=== PATIENT | female | born 1990 | race Caucasian/White ===

== ENCOUNTER 2018-12-24 16:48 | Inpatient (IN) | payer BC ==
[~2018-12-24] VITALS: Ht 167.6 cm; Wt 64.9 kg
[~2018-12-24 16:48] MED LIST: DEXAMETHASONE SOD PHOSPHATE 4 MG INJ IV ONE; GLYCOPYRROLATE 0.2 MG/ML VIAL MC ONE; IV NORMAL SALINE 1000 ML BAG IV ONE; KETOROLAC TROMETHAMINE 30 MG INJ IM ONE; LIDOCAINE-MPF 2% 5 ML VIAL MC ONE; NEOSTIGMINE METHYLSULFATE 10 MG/10 ML VIAL IV ONE; ONDANSETRON 4 MG/2 ML VIAL IV ONE; PROPOFOL 200 MG/20 ML BOTTLE IV ONE; SUCCINYLCHOLINE CHLORIDE 200 MG/10 ML VIAL MC ONE
[2018-12-24] MEDS ORDERED: LEVO100T PO (17:11)
[2018-12-24] MEDS ORDERED: BUDE10.2 INH (17:11)
[2018-12-24] MEDS ORDERED: MONT10TA22 PO (17:11)
[2018-12-24] MEDS ORDERED: ESCI20TA PO (17:11)
[2018-12-24] MEDS ORDERED: MORPHINE SULFATE 2 MG/1 ML DISP.SYRIN IV ONE ×2 (17:30→17:45)
[2018-12-24] MEDS ORDERED: ONDANSETRON 4 MG/2 ML VIAL IV ONE (17:30)
[2018-12-24] MEDS ORDERED: IV NORMAL SALINE 1000 ML BAG IV ONE ×2 (17:30→19:00)
[2018-12-24] MEDS ORDERED: MORPHINE SULFATE 2 MG/1 ML DISP.SYRIN ONE ×2 (17:37→17:48)
[2018-12-24] MEDS ORDERED: ONDANSETRON 4 MG/2 ML VIAL ONE (17:37)
[2018-12-24 17:39] LABS: *BILIRUBIN,URIN NEGATIVE (NEGATIVE); *CLARITY,URINE CLEAR (CLEAR); *COLOR,URINE YELLOW (YELLOW); *KETONES,URINE NEGATIVE (NEGATIVE); *UROBILINOGEN,URINE 0.2 E.U./dl (NORMAL); LEUKOCYTE ESTERASE ,URINE NEGATIVE (NEGATIVE); NITRITE, URINE NEGATIVE (NEGATIVE); UGLUCOSE NEGATIVE (NEGATIVE)
[2018-12-24 17:39] LABS: BASOPHILS % (AUTO) 0.3 % (0.0-2.0); HEMATOCRIT 42.5 % (31.2-41.9); HEMOGLOBIN 13.9 g/dL (10.9-14.3); LYMPHOCYTES # (AUTO) 0.9 K/uL (20.0-40.0); LYMPHOCYTES % (AUTO) 18.7 % (20.5-51.5); MEAN CORPUSCULAR HEMOGLOBIN 29.7 uug (24.7-32.8); MEAN CORPUSCULAR HGB CONC 33 g/dL (32.3-35.6); MEAN CORPUSCULAR VOLUME 91.1 fL (75.5-95.3); MONOCYTES # (AUTO) 0.3 K/uL (2.0-10.0); MONOCYTES % (AUTO) 7.3 % (0.0-11.0); NEUTROPHILS # (AUTO) 3.4 K/uL (1.8-8.9); NEUTROPHILS % (AUTO) 72.7 % (38.5-71.5); PLATELET COUNT (AUTO) 193 K/uL (179-408); RED BLOOD CELL COUNT(AUTO) 4.66 MIL/uL (3.63-4.92); WHITE BLOOD COUNT (AUTO) 4.7 K/uL (3.8-11.8)
[2018-12-24 17:41] LABS: *BLOOD, URINE TRACE (NEGATIVE)
[2018-12-24 17:42] LABS: *URINE HCG, QUAL NEGATIVE (NEGATIVE)
[2018-12-24 17:47] LABS: BACTERIA,URINE NONE SEEN /HPF (NONE SEEN); SQUAMOUS EPITHELIAL CELL,UR MANY /HPF (NONE SEEN); WBC,URINE 0-3 /HPF (0-3)
[2018-12-24 17:51] LABS: ALANINE AMINOTRANSFERASE 18 U/L (14-59); ALKALINE PHOSPHATASE 60 U/L (50-136); ASPARTATE AMINOTRANSFERASE 13 U/L (15-37); BILIRUBIN,DIRECT 0.1 mg/dL (0.0-0.2); BILIRUBIN,TOTAL 0.5 mg/dL (0.2-1.0); CARBON DIOXIDE 28 mmol/L (21-32); CHLORIDE 105 mmol/L (98-107); GLUCOSE 88 mg/dL (74-106); LIPASE 106 U/L (73-393); POTASSIUM 3.9 mmol/L (3.5-5.1); TOTAL PROTEIN, SERUM 7.5 g/dL (6.4-8.2); UREA NITROGEN, BLOOD 14 mg/dL (7-18)
[2018-12-24] MEDS ORDERED: MORPHINE SULFATE 4 MG/1 ML DISP.SYRIN IV ONE (19:00)
[2018-12-24] MEDS ORDERED: MORPHINE SULFATE 4 MG/1 ML DISP.SYRIN ONE (19:01)
[2018-12-24] MEDS ORDERED: CEFTRIAXONE 1 G in IV DEXTROSE 5% 50 ML IV ONE (19:45)
[2018-12-24] MEDS: METRONIDAZOLE 500 MG/NS 100 ML PIGGYBACK IV ONE ×2 (20:05→20:15)
[2018-12-24] MEDS ORDERED: METRONIDAZOLE 500 MG/NS 100ML 100 ML IV ONE (20:07)
[2018-12-24] MEDS ORDERED: CEFTRIAXONE 1 G VIAL ONE (20:07)
[2018-12-24] MEDS ORDERED: HYDROMORPHONE 2 MG/1 ML DISP.SYRIN ONE (20:38)
[2018-12-24] MEDS ORDERED: SEVOFLURANE 250 ML BOTTLE ONE (20:39)
[2018-12-24] MEDS ORDERED: ROCURONIUM BROMIDE 50 MG/5 ML VIAL ONE (20:39)
[2018-12-24] MEDS ORDERED: MIDAZOLAM HCL 2 MG/2 ML VIAL ONE (20:39)
[2018-12-24] MEDS ORDERED: ZOLPIDEM 5 MG TABLET PO PRN (21:15)
[2018-12-24] MEDS ORDERED: ACETAMINOPHEN 325 MG TABLET PO PRN (21:15)
[2018-12-24] MEDS ORDERED: Z GUARD REMEDY PASTE 57 GM TUBE TOP PRN (21:15)
[2018-12-24] MEDS ORDERED: HYDROCODONE/APAP 5-325MG TABLET PO PRN (21:15)
[2018-12-24] MEDS ORDERED: MAGNESIUM HYDROXIDE 30 ML LIQUID UDC PO PRN (21:15)
[2018-12-24] MEDS ORDERED: IV NS 1000 ML 1,000 ML IV PRN (21:15)
[2018-12-24] MEDS ORDERED: BUPIVACAINE/EPI PF 0.25% 30 ML VIAL ONE (21:24)
[2018-12-24] MEDS ORDERED: LIDOCAINE HCL 1% 20 ML VIAL ONE (21:24)
[2018-12-24] MEDS ORDERED: NEOMY/BACITRAC/POLYMI OINT 28.35 GM TUBE ONE (22:09)
[2018-12-24] MEDS ORDERED: MEPERIDINE 25 MG/1 ML DISP.SYRIN ONE (22:39)
[2018-12-24] MEDS ORDERED: FENTANYL CITRATE 100 MCG/2 ML AMPUL ONE (22:51)
[2018-12-25 00:45] VITALS: BP 106/60
[2018-12-25] MEDS ORDERED: OXYCODONE/APAP 5-325 MG TABLET PO PRN (00:45)
[2018-12-25] MEDS: HYDROMORPHONE 1 MG/1 ML DISP.SYRIN IV PRN ×5 (00:57→17:40)
[2018-12-25 05:09] VITALS: BP 100/61
[2018-12-25 06:37] LABS: CREATININE 0.8 mg/dL (0.6-1.3); MAGNESIUM 2.1 mg/dL (1.8-2.4); PHOSPHOROUS 3.2 mg/dL (2.5-4.9); POTASSIUM 4.6 mmol/L (3.5-5.1)
[2018-12-25 06:43] LABS: MEAN CORPUSCULAR HEMOGLOBIN 30.5 uug (24.7-32.8)
[2018-12-25 06:58] LABS: BASOPHILS % (AUTO) 0.1 % (0.0-2.0); HEMATOCRIT 38.2 % (31.2-41.9); LYMPHOCYTES # (AUTO) 0.7 K/uL (20.0-40.0); LYMPHOCYTES % (AUTO) 7.4 % (20.5-51.5); MEAN CORPUSCULAR HGB CONC 33 g/dL (32.3-35.6); MONOCYTES # (AUTO) 0.2 K/uL (2.0-10.0); MONOCYTES % (AUTO) 2.5 % (0.0-11.0); NEUTROPHILS # (AUTO) 8.2 K/uL (1.8-8.9); PLATELET COUNT (AUTO) 176 K/uL (179-408); RED BLOOD CELL COUNT(AUTO) 4.17 MIL/uL (3.63-4.92)
[2018-12-25 07:02] LABS: HEMOGLOBIN 12.7 g/dL (10.9-14.3); MEAN CORPUSCULAR VOLUME 91.5 fL (75.5-95.3); WHITE BLOOD COUNT (AUTO) 9.1 K/uL (3.8-11.8)
[2018-12-25] MEDS: IV LACTATED RINGERS SOLUTION 1,000 ML IV PRN ×2 (09:04→17:28)
[2018-12-25] MEDS: ONDANSETRON 4 MG/2 ML VIAL IV PRN ×2 (09:27→17:58)
[2018-12-25] MEDS ORDERED: HOME MED MISCELLANEOUS XX PRN (11:45)
[2018-12-25] MEDS ORDERED: HYDR-4354 PO (13:49)
[2018-12-25] MEDS ORDERED: METR500T PO (13:49)
[2018-12-25] MEDS ORDERED: CIPR-263 PO (13:49)
[2018-12-25] MEDS: IBUPROFEN 800 MG TABLET PO SCH ×2 (14:24→21:02)
[2018-12-25] MEDS: GABAPENTIN 300 MG CAPSULE PO SCH ×2 (14:24→21:02)
[2018-12-25] MEDS: ACETAMINOPHEN 325 MG TABLET PO SCH ×2 (14:24→21:02)
[2018-12-25] MEDS: LEVOTHYROXINE SODIUM 100 MCG TABLET PO SCH (14:24)
[2018-12-25 20:00] VITALS: BP 100/50
[2018-12-25] MEDS ORDERED: CEFTRIAXONE 1 G in IV DEXTROSE 5% 50 ML IV SCH (20:00)
[2018-12-25] MEDS: BELVIQ PO SCH (20:18)
[2018-12-25] MEDS: SYMBICORT IH SCH (20:20)
[2018-12-25] MEDS ORDERED: MONTELUKAST SODIUM 10 MG TABLET PO SCH (21:00)
[2018-12-25] MEDS ORDERED: ESCITALOPRAM OXALATE 10 MG TABLET PO SCH (21:00)
[2018-12-25] MEDS: LORAZEPAM 2 MG/1 ML VIAL IV PRN (22:46)
[2018-12-26] MEDS: IV LACTATED RINGERS SOLUTION 1,000 ML IV PRN (02:32)
[2018-12-26] MEDS: GABAPENTIN 300 MG CAPSULE PO SCH ×2 (06:06→13:59)
[2018-12-26] MEDS: IBUPROFEN 800 MG TABLET PO SCH ×2 (06:06→13:59)
[2018-12-26] MEDS: LEVOTHYROXINE SODIUM 100 MCG TABLET PO SCH (06:06)
[2018-12-26] MEDS: ACETAMINOPHEN 325 MG TABLET PO SCH ×2 (06:06→13:59)
[2018-12-26 06:12] VITALS: BP 110/55
[2018-12-26] MEDS ORDERED: GLYCOPYRROLATE 0.2 MG/ML VIAL MC ONE (07:46)
[2018-12-26] MEDS ORDERED: DEXAMETHASONE SOD PHOSPHATE 4 MG INJ IV ONE (07:46)
[2018-12-26] MEDS ORDERED: IV NORMAL SALINE 1000 ML BAG IV ONE (07:46)
[2018-12-26] MEDS ORDERED: PROPOFOL 200 MG/20 ML BOTTLE IV ONE (07:46)
[2018-12-26] MEDS ORDERED: SUCCINYLCHOLINE CHLORIDE 200 MG/10 ML VIAL MC ONE (07:46)
[2018-12-26] MEDS ORDERED: NEOSTIGMINE METHYLSULFATE 10 MG/10 ML VIAL IV ONE (07:46)
[2018-12-26] MEDS ORDERED: KETOROLAC TROMETHAMINE 30 MG INJ IM ONE (07:46)
[2018-12-26] MEDS ORDERED: ONDANSETRON 4 MG/2 ML VIAL IV ONE (07:46)
[2018-12-26] MEDS ORDERED: LIDOCAINE-MPF 2% 5 ML VIAL MC ONE (07:46)
[2018-12-26] MEDS: SYMBICORT IH SCH (08:33)
[2018-12-26] MEDS: BELVIQ PO SCH (08:34)
[2018-12-26] MEDS ORDERED: MONTELUKAST SODIUM 10 MG TABLET PO SCH (09:00)
[2018-12-26 09:15] VITALS: BP 114/74
[2018-12-26 12:48] VITALS: BP 107/57
[2018-12-26] MEDS: LORAZEPAM 2 MG/1 ML VIAL IV PRN (14:07)
== END 2018-12-26 15:05 | disposition home or self-care (01) | DRG 343 ==
LOC: ER 16:48 → MEDSURG3 20:59
PROVIDERS: ADMIT Nurse Practitioner Acute Care; ATTEND Nurse Practitioner Acute Care
PROC: 0DTJ4ZZ Resection of Appendix, Percutaneous Endoscopic Approach (ICD-10-PCS; principal; 2018-12-24)
DX: K35.80 Unspecified acute appendicitis (principal); E03.9 Hypothyroidism, unspecified; Z79.890 Hormone replacement therapy; J45.909 Unspecified asthma, uncomplicated; F41.9 Anxiety disorder, unspecified; Z79.51 Long term (current) use of inhaled steroids; Z97.5 Presence of (intrauterine) contraceptive device
CPT/HCPCS: 36415; 83690; 83735; 84100; 84703; 85025; A4663; G0378; J0330; J0696; J1100; J1170; J1885; J2060; J2175; J2250; J2270; J2405; J2710; J3010; J3490; J7030; J7060; J7120

== ENCOUNTER 2018-12-28 17:30 | Emergency (ER) | payer BC ==
[~2018-12-28] VITALS: Ht 165.1 cm; Wt 64.9 kg
[~2018-12-28 17:30] MED LIST changes: +BUDE10.2 INH; +CIPR-263 PO; -DEXAMETHASONE SOD PHOSPHATE 4 MG INJ IV ONE; +ESCI20TA PO; -GLYCOPYRROLATE 0.2 MG/ML VIAL MC ONE; -IV NORMAL SALINE 1000 ML BAG IV ONE; -KETOROLAC TROMETHAMINE 30 MG INJ IM ONE; +LEVO100T PO; -LIDOCAINE-MPF 2% 5 ML VIAL MC ONE; +METR500T PO; +MONT10TA22 PO; -NEOSTIGMINE METHYLSULFATE 10 MG/10 ML VIAL IV ONE; -ONDANSETRON 4 MG/2 ML VIAL IV ONE; -PROPOFOL 200 MG/20 ML BOTTLE IV ONE; -SUCCINYLCHOLINE CHLORIDE 200 MG/10 ML VIAL MC ONE
--- NOTE | 2018-12-28 17:45 | NUR ---
IRMA COOLEY AT BEDSIDE FOR MSE.
[2018-12-28] MEDS ORDERED: METR500T PO (17:46)
[2018-12-28] MEDS ORDERED: CIPR-263 PO (17:46)
--- NOTE | 2018-12-28 17:47 | NUR ---
PT IS A/OX4, PRESENTS TO THE ER C/O ABD PAIN S/P LAP APPY 12/24/18. PT WAS ADVISED BY DR. BILLINGSLEY TO COME INTO THE ER.
[2018-12-28 17:57] LABS: *BILIRUBIN,URIN NEGATIVE (NEGATIVE); *BLOOD, URINE 3+ (NEGATIVE); *CLARITY,URINE CLOUDY (CLEAR); *COLOR,URINE YELLOW (YELLOW); *KETONES,URINE NEGATIVE (NEGATIVE); *UROBILINOGEN,URINE 0.2 E.U./dl (NORMAL); LEUKOCYTE ESTERASE ,URINE 1+ (NEGATIVE); NITRITE, URINE NEGATIVE (NEGATIVE); UGLUCOSE NEGATIVE (NEGATIVE)
[2018-12-28 17:59] LABS: *URINE HCG, QUAL NEGATIVE (NEGATIVE)
[2018-12-28] MEDS ORDERED: LORAZEPAM 2 MG/1 ML VIAL IV ONE (18:00)
[2018-12-28 18:04] LABS: BASOPHILS % (AUTO) 0.4 % (0.0-2.0); EOSINOPHILS # (AUTO) 0.1 K/uL (0.0-0.7); EOSINOPHILS % (AUTO) 1.5 % (0.0-7.0); HEMATOCRIT 41.3 % (31.2-41.9); HEMOGLOBIN 13.6 g/dL (10.9-14.3); LYMPHOCYTES # (AUTO) 1.6 K/uL (20.0-40.0); LYMPHOCYTES % (AUTO) 23.5 % (20.5-51.5); MEAN CORPUSCULAR HEMOGLOBIN 30.1 uug (24.7-32.8); MEAN CORPUSCULAR HGB CONC 33 g/dL (32.3-35.6); MEAN CORPUSCULAR VOLUME 91.3 fL (75.5-95.3); MONOCYTES # (AUTO) 0.4 K/uL (2.0-10.0); MONOCYTES % (AUTO) 6.5 % (0.0-11.0); NEUTROPHILS # (AUTO) 4.5 K/uL (1.8-8.9); NEUTROPHILS % (AUTO) 68.1 % (38.5-71.5); PLATELET COUNT (AUTO) 233 K/uL (179-408); RED BLOOD CELL COUNT(AUTO) 4.52 MIL/uL (3.63-4.92); WHITE BLOOD COUNT (AUTO) 6.6 K/uL (3.8-11.8)
[2018-12-28 18:07] LABS: BACTERIA,URINE FEW /HPF (NONE SEEN); MUCUS,URINE MODERATE /LPF (0-FEW); RBC,URINE 80-100 /HPF (0-3); SQUAMOUS EPITHELIAL CELL,UR MODERATE /HPF (NONE SEEN)
[2018-12-28] MEDS ORDERED: LORAZEPAM 2 MG/1 ML VIAL ONE (18:07)
[2018-12-28 18:10] LABS: CREATININE 0.9 mg/dL (0.6-1.3); POTASSIUM 3.8 mmol/L (3.5-5.1)
[2018-12-28] MEDS ORDERED: SWABABLE VALVE TRANSFER SET EA MC ONE (18:13)
[2018-12-28] MEDS ORDERED: IV NORMAL SALINE 250 ML IV ONE (18:13)
[2018-12-28] MEDS ORDERED: IOHEXOL 350 100 ML INFUS..BTL ONE (18:13)
[2018-12-28 18:16] LABS: BILIRUBIN,DIRECT 0.1 mg/dL (0.0-0.2); BILIRUBIN,TOTAL 0.5 mg/dL (0.2-1.0); TOTAL PROTEIN, SERUM 7.7 g/dL (6.4-8.2)
--- NOTE | 2018-12-28 18:53 | NUR ---
US TECH AT BEDSIDE.
--- NOTE | 2018-12-28 19:03 | NUR ---
SHIFT REPORT GIVEN TO LASHAWN COLLINS.
--- NOTE | 2018-12-28 19:04 | NUR ---
SHIFT REPORT RECEIVED FROM LASHAWN ROGER.
--- NOTE | 2018-12-28 19:12 | NUR ---
ER PHYSICIAN AT BEDSIDE WITH PATIENT DISCUSSING RESULTS AND PLAN OF CARE.
--- NOTE | 2018-12-28 19:20 | NUR ---
EDUCATED PATIENT ABOUT DISCHARGE INSTRUCTIONS. PATIENT HAS VERBALIZE UNDERSTANDING AND CONSENT.
--- NOTE | 2018-12-28 19:33 | NUR ---
Patient discharged to home in stable conditon. Written and verbal after care instructions given. Patient verbalizes understanding of instructions. Patient able to ambulate and denies any respirtory distress or discomfort at this timre. patient is able to verbalize needs and needs have been met prior to discharge. Patient has a well understanding of disease processes and instructions. patient called private car to take patient home. All personal belongings taken with patient along with exit care package.
[2018-12-28 19:36] VITALS: BP 118/71
== END 2018-12-28 19:30 | disposition home or self-care (01) ==
LOC: ER 17:30
DX: G89.18 Other acute postprocedural pain (principal); R10.13 Epigastric pain; J45.909 Unspecified asthma, uncomplicated; E03.9 Hypothyroidism, unspecified; Z88.0 Allergy status to penicillin; Z88.1 Allergy status to other antibiotic agents; Z90.89 Acquired absence of other organs; Z79.899 Other long term (current) drug therapy; Z79.2 Long term (current) use of antibiotics
CPT/HCPCS: 36415; 71275; 74177; 76700; 80048; 80076; 81000; 81001; 83690; 84703; 85025; 87086; 96374; 99284; J2060; Q9967; A4663; J7050

== ENCOUNTER 2020-10-30 20:28 | Emergency (ER) | payer BC ==
[~2020-10-30] VITALS: Ht 170.2 cm; Wt 54.9 kg
[2020-10-30 21:08] LABS: BASOPHILS % (AUTO) 0.4 % (0.0-2.0); EOSINOPHILS % (AUTO) 0.5 % (0.0-7.0); HEMATOCRIT 40.5 % (31.2-41.9); HEMOGLOBIN 13.8 g/dL (10.9-14.3); LYMPHOCYTES # (AUTO) 1.5 K/uL (20.0-40.0); LYMPHOCYTES % (AUTO) 20.8 % (20.5-51.5); MEAN CORPUSCULAR HEMOGLOBIN 32.1 uug (24.7-32.8); MEAN CORPUSCULAR HGB CONC 34 g/dL (32.3-35.6); MEAN CORPUSCULAR VOLUME 94.3 fL (75.5-95.3); MONOCYTES # (AUTO) 0.4 K/uL (2.0-10.0); NEUTROPHILS # (AUTO) 5.3 K/uL (1.8-8.9); NEUTROPHILS % (AUTO) 73.3 % (38.5-71.5); PLATELET COUNT (AUTO) 231 K/uL (179-408); WHITE BLOOD COUNT (AUTO) 7.2 K/uL (3.8-11.8)
--- NOTE | 2020-10-30 21:17 | NUR ---
Called for ultrasound.
[2020-10-30 21:21] LABS: ALANINE AMINOTRANSFERASE 45 U/L (14-59); ALKALINE PHOSPHATASE 56 U/L (50-136); ASPARTATE AMINOTRANSFERASE 18 U/L (15-37); BILIRUBIN,DIRECT 0.1 mg/dL (0.0-0.2); BILIRUBIN,TOTAL 0.5 mg/dL (0.2-1.0); CARBON DIOXIDE 25 mmol/L (21-32); CHLORIDE 104 mmol/L (98-107); GLUCOSE 90 mg/dL (74-106); LIPASE 138 U/L (73-393); POTASSIUM 3.6 mmol/L (3.5-5.1); TOTAL PROTEIN, SERUM 7.4 g/dL (6.4-8.2); UREA NITROGEN, BLOOD 11 mg/dL (7-18)
[2020-10-30 21:33] LABS: *BILIRUBIN,URIN NEGATIVE (NEGATIVE); *BLOOD, URINE NEGATIVE (NEGATIVE); *CLARITY,URINE SLIGHTLY CLOUDY (CLEAR); *COLOR,URINE YELLOW (YELLOW); *KETONES,URINE NEGATIVE (NEGATIVE); *UROBILINOGEN,URINE 0.2 E.U./dl (NORMAL); LEUKOCYTE ESTERASE ,URINE NEGATIVE (NEGATIVE); NITRITE, URINE NEGATIVE (NEGATIVE); UGLUCOSE NEGATIVE (NEGATIVE)
--- NOTE | 2020-10-30 21:47 | NUR ---
U/S tech in room with patient.
--- NOTE | 2020-10-30 21:49 | NUR ---
Ultrasound currently at bedside to do pelvic ultrasound.
--- NOTE | 2020-10-30 22:10 | NUR ---
Ultrasound completed. Pt. resting at bedside. Vss. Pain 12/13. MD Valencia informed.
[2020-10-30 22:11] LABS: BACTERIA,URINE MODERATE /HPF (NONE SEEN); RBC,URINE 0-3 /HPF (0-3); SQUAMOUS EPITHELIAL CELL,UR FEW /HPF (NONE SEEN); URINE AMORPHOUS PHOSPHATES MODERATE /HPF; WBC,URINE 0-3 /HPF (0-3)
[2020-10-30] MEDS: KETOROLAC TROMETHAMINE 30 MG INJ IM ONE (22:25)
--- NOTE | 2020-10-30 22:51 | NUR ---
Patient discharged to home in stable condition. Written and verbal after care instructions given. Patient verbalizes understanding of instructions. Stressed follow up or return to ER for worsening s/s.
[2020-10-30 22:52] VITALS: BP 108/66
== END 2020-10-30 22:42 | disposition home or self-care (01) ==
LOC: ER 20:30
DX: R10.32 Left lower quadrant pain (principal); N91.0 Primary amenorrhea; Z88.0 Allergy status to penicillin; E03.9 Hypothyroidism, unspecified; Z79.890 Hormone replacement therapy; J45.909 Unspecified asthma, uncomplicated; Z79.899 Other long term (current) drug therapy
CPT/HCPCS: 36415; 76856; 83690; 85025; 87086; A4663

== ENCOUNTER 2020-11-23 12:10 | Emergency (ER) | payer BC ==
[~2020-11-23] VITALS: Ht 170.2 cm; Wt 58.5 kg
--- NOTE | 2020-11-23 12:10 | NUR ---
pt bib boy friend to er s/p possible drug overdose. pt boy friend found the bottle of klonopin at bedside.pt awake and able to answer the question, although very lethargic. pt states that she lost 2 important persons in her life recently and feels that she is a loser. pt placed on monitor, er md and rts at bedside, ra 97%. Addendum: 11/23/20 at 1227 by OTIS pt admits to take the pills to harm self. pt boy friend at bedside.
[2020-11-23 12:24] LABS: HEMATOCRIT 41.5 % (31.2-41.9); MEAN CORPUSCULAR HEMOGLOBIN 32.4 uug (24.7-32.8); MEAN CORPUSCULAR VOLUME 95.3 fL (75.5-95.3); PLATELET COUNT (AUTO) 249 K/uL (179-408)
[2020-11-23 12:30] LABS: CARBON DIOXIDE 21 mmol/L (21-32); CHLORIDE 106 mmol/L (98-107); CREATININE 1.1 mg/dL (0.6-1.3); GLUCOSE 115 mg/dL (74-106); POTASSIUM 3.8 mmol/L (3.5-5.1); UREA NITROGEN, BLOOD 9 mg/dL (7-18)
[2020-11-23] MEDS ORDERED: IV NORMAL SALINE 1000 ML BAG IV ONE (12:30)
[2020-11-23 12:36] LABS: ALANINE AMINOTRANSFERASE 56 U/L (14-59); ALKALINE PHOSPHATASE 57 U/L (50-136); ASPARTATE AMINOTRANSFERASE 22 U/L (15-37); BILIRUBIN,DIRECT 0.2 mg/dL (0.0-0.2); TOTAL PROTEIN, SERUM 7.3 g/dL (6.4-8.2)
[2020-11-23 12:39] LABS: ACETAMINOPHEN < 2.0 ug/mL (10-30)
[2020-11-23 12:40] LABS: ETHANOL 30 MG/DL (0-0)
[2020-11-23 12:44] LABS: THYROID STIMULATING HORMONE 3.001 mIU/mL (0.358-3.740)
--- NOTE | 2020-11-23 12:53 | NUR ---
Assissted pt to bathroom, urine collected and sent to LAB.
[2020-11-23 12:57] LABS: *BILIRUBIN,URIN NEGATIVE (NEGATIVE); *BLOOD, URINE NEGATIVE (NEGATIVE); *CLARITY,URINE CLEAR (CLEAR); *COLOR,URINE YELLOW (YELLOW); *KETONES,URINE NEGATIVE (NEGATIVE); *UROBILINOGEN,URINE 0.2 E.U./dl (NORMAL); LEUKOCYTE ESTERASE ,URINE NEGATIVE (NEGATIVE); NITRITE, URINE NEGATIVE (NEGATIVE); UGLUCOSE NEGATIVE (NEGATIVE)
[2020-11-23 13:02] LABS: *URINE HCG, QUAL NEGATIVE (NEGATIVE)
[2020-11-23 13:08] LABS: *AMPHETAMINE, URINE NEGATIVE (NEGATIVE); *CANNABINOID, URINE NEGATIVE (NEGATIVE); *COCCAINE, URINE NEGATIVE (NEGATIVE); *OPIATE, URINE POSITIVE (NEGATIVE); *PHENCYCLIDINE SCREEN,URINE NEGATIVE (NEGATIVE)
--- NOTE | 2020-11-23 13:20 | NUR ---
CALLED [facility] FOR PSYCH EVAL. ETA ONE HOUR.
--- NOTE | 2020-11-23 14:27 | NUR ---
Patient is resting comfortably in bed with eyes closed, NAD noted. Pt's partner at the bedside.
--- NOTE | 2020-11-23 15:08 | NUR ---
Shannan Umanzor from PET at the bedside for psych eval.
--- NOTE | 2020-11-23 15:48 | NUR ---
Per Shannan, pt to be d/c home.
[2020-11-23 15:50] VITALS: BP 107/70
--- NOTE | 2020-11-23 15:51 | NUR ---
Patient discharged to home in stable condition. Written and verbal after care instructions given. Patient and pt's partner verbalize understanding of instructions. Stressed follow up or return to ER for worsening s/s.
== END 2020-11-23 15:53 | disposition home or self-care (01) ==
LOC: ER 12:11
DX: F32.9 Major depressive disorder, single episode, unspecified (principal); Z20.822 Contact with and (suspected) exposure to COVID-19; J45.909 Unspecified asthma, uncomplicated; F41.9 Anxiety disorder, unspecified; E03.9 Hypothyroidism, unspecified; Z79.890 Hormone replacement therapy; R94.31 Abnormal electrocardiogram [ECG] [EKG]
CPT/HCPCS: 36415; 71045; 84443; 84703; 85025; 85730; 93005; A4663; G0480

== ENCOUNTER 2020-11-25 20:23 | Emergency (ER) | payer BC ==
[~2020-11-25] VITALS: Ht 170.2 cm; Wt 54.4 kg
--- NOTE | 2020-11-25 20:30 | NUR ---
Patient presents to ED from home for syncopal fall. 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 Her (one of the officers) also present. Patient fell and hit her head on her sons crib. She is complaining of a headache + lower back pain. A&Ox4 but drowsy. Able to make needs known. PERRLA. No signs of trauma. No SI/HI/AH/VH at this time. Saturations >94% on room air. No SOB, no labored breathing, no retractions. Lungs clear to auscultation bilaterally. No signs of cyanosis. Regular rate & rhythm. No murmurs, no palpitations, no chest pain. Well perfused skin. Afebrile. GI/: No N/V/D or constipation. Soft + non-tender/distended. Normoactive bowel sounds. No guarding.
--- NOTE | 2020-11-25 20:33 | NUR ---
Patient escorted to restroom with myself and officer Sathya ().
[2020-11-25] MEDS ORDERED: IV NORMAL SALINE 1000 ML BAG IV ONE (20:45)
[2020-11-25 21:00] LABS: HEMATOCRIT 42.5 % (31.2-41.9); MEAN CORPUSCULAR HEMOGLOBIN 32.4 uug (24.7-32.8); MEAN CORPUSCULAR VOLUME 95.4 fL (75.5-95.3); PLATELET COUNT (AUTO) 236 K/uL (179-408)
[2020-11-25 21:04] LABS: *BILIRUBIN,URIN NEGATIVE (NEGATIVE); *BLOOD, URINE NEGATIVE (NEGATIVE); *CLARITY,URINE CLEAR (CLEAR); *COLOR,URINE YELLOW (YELLOW); *KETONES,URINE NEGATIVE (NEGATIVE); *UROBILINOGEN,URINE 0.2 E.U./dl (NORMAL); LEUKOCYTE ESTERASE ,URINE 1+ (NEGATIVE); NITRITE, URINE NEGATIVE (NEGATIVE); PH,URINE 7.5 (5.0-8.0); UGLUCOSE NEGATIVE (NEGATIVE)
[2020-11-25 21:07] LABS: *URINE HCG, QUAL NEGATIVE (NEGATIVE)
[2020-11-25 21:10] LABS: *AMPHETAMINE, URINE NEGATIVE (NEGATIVE); *CANNABINOID, URINE NEGATIVE (NEGATIVE); *COCCAINE, URINE NEGATIVE (NEGATIVE); *OPIATE, URINE POSITIVE (NEGATIVE); *PHENCYCLIDINE SCREEN,URINE NEGATIVE (NEGATIVE); POTASSIUM 3.9 mmol/L (3.5-5.1)
[2020-11-25 21:12] LABS: BACTERIA,URINE FEW /HPF (NONE SEEN); MUCUS,URINE FEW /LPF (0-FEW); RBC,URINE 0-3 /HPF (0-3); SQUAMOUS EPITHELIAL CELL,UR MODERATE /HPF (NONE SEEN); URINE AMORPHOUS PHOSPHATES MODERATE /HPF
[2020-11-25 21:19] LABS: BILIRUBIN,DIRECT 0.1 mg/dL (0.0-0.2); BILIRUBIN,TOTAL 0.6 mg/dL (0.2-1.0); TOTAL PROTEIN, SERUM 8.1 g/dL (6.4-8.2)
--- NOTE | 2020-11-25 21:53 | NUR ---
Patient resting in bed. VSS. Blankets provided for comfort. Safety measures in place.
--- NOTE | 2020-11-25 22:15 | NUR ---
at bedside. Patient in no acute distress. VSS.
[2020-11-25] MEDS ORDERED: FLUC150T PO (22:33)
--- NOTE | 2020-11-25 22:51 | NUR ---
Patient discharged to home in stable condition. Written and verbal after care instructions given. Patient verbalizes understanding of instructions. Stressed follow up or return to ER for worsening s/s. VSS. Steady gait. All belongings with patient. Advised to not drive. Verbalizes improvement in affect. No SI/HI/AH/VH.
[2020-11-25 22:52] VITALS: BP 117/77
== END 2020-11-25 22:45 | disposition home or self-care (01) ==
LOC: ER 20:24
DX: R53.1 Weakness (principal); B37.9 Candidiasis, unspecified; T42.4X1D Poisoning by benzodiazepines, accidental (unintentional), subsequent encounter; T40.2X1D Poisoning by other opioids, accidental (unintentional), subsequent encounter; S01.81XD Laceration without foreign body of other part of head, subsequent encounter; W01.190D Fall on same level from slipping, tripping and stumbling with subsequent striking against furniture, subsequent encounter; E03.9 Hypothyroidism, unspecified; J45.909 Unspecified asthma, uncomplicated; F32.9 Major depressive disorder, single episode, unspecified; F90.9 Attention-deficit hyperactivity disorder, unspecified type; F41.9 Anxiety disorder, unspecified; Z88.0 Allergy status to penicillin; Z79.890 Hormone replacement therapy; Z79.899 Other long term (current) drug therapy
CPT/HCPCS: 36415; 83605; 84703; 85025; 85730; 87086; 93005; A4663

== ENCOUNTER 2021-02-28 16:40 | Emergency (ER) | payer SELFPAY ==
[~2021-02-28] VITALS: Ht 170.2 cm; Wt 59.0 kg
[~2021-02-28 16:40] MED LIST changes: +FLUC150T PO
[2021-02-28 17:09] LABS: HEMATOCRIT 41.3 % (31.2-41.9); MEAN CORPUSCULAR HEMOGLOBIN 32.6 uug (24.7-32.8); MEAN CORPUSCULAR VOLUME 96.5 fL (75.5-95.3); PLATELET COUNT (AUTO) 233 K/uL (179-408)
[2021-02-28 17:20] LABS: ALANINE AMINOTRANSFERASE 71 U/L (14-59); ALKALINE PHOSPHATASE 67 U/L (50-136); ASPARTATE AMINOTRANSFERASE 36 U/L (15-37); BILIRUBIN,DIRECT 0.1 mg/dL (0.0-0.2); BILIRUBIN,TOTAL 0.5 mg/dL (0.2-1.0); CARBON DIOXIDE 22 mmol/L (21-32); CHLORIDE 106 mmol/L (98-107); GLUCOSE 115 mg/dL (74-106); POTASSIUM 3.1 mmol/L (3.5-5.1); TOTAL PROTEIN, SERUM 7.1 g/dL (6.4-8.2); UREA NITROGEN, BLOOD 19 mg/dL (7-18)
[2021-02-28 17:29] LABS: ACETAMINOPHEN < 2.0 ug/mL (10-30)
[2021-02-28 17:30] LABS: ETHANOL < 3 MG/DL (0-0)
[2021-02-28 18:43] LABS: *URINE HCG, QUAL NEGATIVE (NEGATIVE)
[2021-02-28 18:53] LABS: *AMPHETAMINE, URINE POSITIVE (NEGATIVE); *CANNABINOID, URINE POSITIVE (NEGATIVE); *COCCAINE, URINE NEGATIVE (NEGATIVE); *OPIATE, URINE NEGATIVE (NEGATIVE); *PHENCYCLIDINE SCREEN,URINE NEGATIVE (NEGATIVE)
--- NOTE | 2021-02-28 19:05 | NUR ---
Patient to rm 2A Awake,alert,oriented to time,place person, Per patient took clonipine 0.1 mg that she uses for sleep but took about 20 tabs "to be numb"at about 15:30 today. Patients boyfriend relizied she was missing at home and found patient in garage sitting in car. Per fire extinguisher charger seen for simular episode in November this year. SL#20 angio dry intack.
--- NOTE | 2021-02-28 19:29 | NUR ---
Recieved report from day shift RN. Pt. currently laying in bed, aox4, NAD. Patients boyfriend at bedside. Pt. denies any SI, denies her OD was any attempt to self harm.
--- NOTE | 2021-02-28 20:07 | NUR ---
Patient discharged to home in stable condition. Pt being driven home by boyfriend. NAD. VSS. Walks with steady gait. All belongings taken. Written and verbal after care instructions given. Patient verbalizes understanding of instructions. Stressed follow up or return to ER for worsening s/s.
[2021-02-28 20:12] VITALS: BP 105/64
== END 2021-02-28 20:07 | disposition home or self-care (01) ==
LOC: ER 16:40
DX: T46.5X2A Poisoning by other antihypertensive drugs, intentional self-harm, initial encounter (principal); Y92.89 Other specified places as the place of occurrence of the external cause; Z20.822 Contact with and (suspected) exposure to COVID-19; E03.9 Hypothyroidism, unspecified; J45.909 Unspecified asthma, uncomplicated; Z88.0 Allergy status to penicillin; Z79.890 Hormone replacement therapy; F32.9 Major depressive disorder, single episode, unspecified; Z79.899 Other long term (current) drug therapy; R45.851 Suicidal ideations
CPT/HCPCS: 36415; 84703; 85025; A4663; G0480